=== PATIENT | female | born 1940 | race Caucasian/White ===

== ENCOUNTER 2017-06-25 23:47 | Emergency (ER) | payer OTHER, MEDICARE ==
[~2017-06-25] VITALS: Ht 162.6 cm; Wt 45.4 kg
--- NOTE | 2017-06-25 23:49 | ED AMS/SEIZURE/WEAK/DIZZY ---
History of Present Illness General Chief Complaint: Altered Mental Status Stated Complaint: INCREASED AMS Source: patient, family Exam Limitations: no limitations Vital Signs & Intake/Output Vital Signs & Intake/Output Vital Signs Date Time Temp Pulse Resp B/P B/P Pulse O2 O2 Flow FiO2 Mean Ox Delivery Rate 06/26 0430 100.9 88 16 149/66 93 Non 100% ReBreather 06/26 0333 90 169/74 06/26 0314 100.6 72 18 85/50 94 Nasal 2.0L Cannula 06/26 0140 98 Nasal 3.0L Cannula 06/26 0051 99.6 82 18 130/60 98 Nasal 4.0L Cannula 06/25 2353 99.4 90 28 151/71 100 Non 100% ReBreather ED Intake and Output 06/26 0000 06/25 1200 Intake Total Output Total Balance Patient 1000 lb Weight Weight Reported by Patient Measurement Method Allergies Coded Allergies: prochlorperazine ( 06/26/17) Reconcile Medications Acyclovir 400 MG TABLET 1 TAB PO TID ANTIVIRAL (Reported) Aspirin (Aspirin*) 81 MG TAB.CHEW 1 TAB PO DAILY HEART HEALTH (Reported) Calcium Carbonate/Vitamin D3 (Os-Duc 500+D3 Caplet) 500 MG-200 TABLET 1 TAB PO BID SUPPLEMENT (Reported) Cyanocobalamin (Vitamin B-12) (Vitamin B-12) 1,000 MCG/ML DROPS SUPPLEMENT ( Reported) Dexamethasone 4 MG TABLET 16 MG PO WEEKLY (Reported) Docusate Sodium (Col-Rite) 100 MG CAPSULE 1 TAB PO DAILY CONSTIPATION ( Reported) Lenalidomide (Revlimid) 10 MG CAPSULE (Reported) 1 TAB DAILY X 21 DAYS, THEN 7 DAYS OFF Lidocaine (Lidoderm) 5 % ADH..PATCH 1 PAT TOP DAILY PAIN (Reported) may wear up to 12 hours Ondansetron HCl (Zofran) 8 MG TABLET 1 TAB PO TID CHEMO (Reported) Oxycodone HCl (Oxycontin) 80 MG TAB.ER.12H 1 TAB PO TID PAIN (Reported) Oxycodone HCl (Roxicodone) 15 MG TABLET 1 TAB PO Q3H PRN PAIN (Reported) Polyethylene Glycol 3350 (Glycolax) 17 GRAM/DOSE POWDER 17 GM PO AD CONSTIPATION (Reported) Zoledronic Acid 4 MG VIAL (Reported) Triage Nurses Notes Reviewed? yes Onset: Gradual Duration: day(s): Timing: recent history Injury Environment: home Severity: moderate, severe Modifying Factors: Improves With: rest. Associated Symptoms: lethargy HPI: 76yo woman h/o multiple myeloma, presently active, being treated with oral meds, followed at [place], presents with mental status change. Per the medics, she fell 4 days ago. "I was sitting on the toilet and fell backwards." She does not believe that she lost consciousness. She notes worsening lower and thoracic back pain. Her increased her oxy from 15 to 25 with 3-4 extra doses, in addition to her oxycontin 80 tid. She became increasingly lethargic today. 911 was called. The medics arrived. She had slow respirations with periods of apnea, 02 sat in the 70's. She was revivied with vigorous stimulation. No narcan was employed. Upon arrival, she is presently comfortable, lethargic, responding appropriately to questions. Past History Travel History Traveled to [place] past 21 day No Medical History Any Pertinent Medical History? see below for history Musculoskeletal: chronic pain Blood Disorders: multiple myeloma Surgical History Surgical History: unobtainable Family History Hx Contributory? No Review of Systems Review of Systems Constitutional: Reports: no symptoms. EENTM: Reports: no symptoms. Respiratory: Reports: no symptoms. Cardiovascular: Reports: no symptoms. GI: Reports: no symptoms. Genitourinary: Reports: no symptoms. Musculoskeletal: Reports: no symptoms. Skin: Reports: no symptoms. Neurological/Psychological: Reports: no symptoms. Hematologic/Endocrine: Reports: no symptoms. Immunologic/Allergic: Reports: no symptoms. All Other Systems: Reviewed and Negative Physical Exam Physical Exam General Appearance: well developed/nourished, no apparent distress, awake, lethargic, but easily arousable with verbal stimuli Head: atraumatic, normal appearance Eyes: Bilateral: normal appearance, PERRL, EOMI. Ears, Nose, Throat: normal pharynx, normal ENT inspection Neck: normal inspection, supple, tender midline Respiratory: normal breath sounds, chest non-tender, no respiratory distress, quiet respiration, lungs clear Cardiovascular: regular rate/rhythm Gastrointestinal: normal bowel sounds, soft, non-tender, no organomegaly Back: kyphotic, diffuse spinal tenderness to palpation with paraspinal muscle spasm. Extremities: normal range of motion Neurologic/Psych: no motor/sensory deficits, awake, alert, oriented x 3 Skin: intact, normal color, warm/dry Core Measures ACS in differential dx? No CVA/TIA Diagnosis No Sepsis Present: No Sepsis Focused Exam Completed? No Progress Differential Diagnosis: medication side effect vs overdose vs other. Plan of Care: Orders Procedure Date/time Status BLOOD CULTURE 06/26 0320 Active BLOOD CULTURE 06/26 0316 Active TROPONIN LEVEL 06/25 2356 Complete PARTIAL THROMBOPLASTIN TIME 06/25 2356 Complete PROTHROMBIN TIME 06/25 2356 Complete LIPASE 06/25 2356 Complete ETHANOL 06/25 2356 Complete COMPREHENSIVE METABOLIC PANEL 06/25 2356 Complete CBC WITHOUT DIFFERENTIAL 06/25 2356 Complete AMYLASE 06/25 2356 Complete EKG 06/25 2356 Active Current Medications Sig/Nara Start time Last Medication Dose Stop Time Status Admin Ceftazidime 1,000 MG ONCE ONE 06/26 0800 AC 06/26 (Fortaz) 06/26 0801 0426 Laboratory Tests 06/26/17 0014: Anion Gap 13, Estimated GFR 31 L, BUN/Creatinine Ratio 22.5, Glucose 102 H, Calcium 7.5 L, Total Bilirubin 0.9, AST 14, ALT 31, Alkaline Phosphatase 109, Troponin I 0.05, Total Protein 6.0 L, Albumin 3.5, Globulin 2.5, Albumin/ Globulin Ratio 1.4, Amylase < 30 L, Lipase 16 L, PT 13.4 H, INR 1.28 H, APTT 27, CBC w Diff MAN DIFF ORDERED, RBC 3.23 L, MCV 96.8, MCH 32.4 H, RDW 18.3 H , MPV 8.2, Segmented Neutrophils 41 L, Band Neutrophils 3, Lymphocytes 30, Monocytes 26 H, Platelet Estimate ADEQUATE, Polychromasia 1+, Poikilocytosis 2+ , Anisocytosis 1+, [place] Cells 2+, Elliptocytes 2+, PUBS MCHC 33.5, Serum Alcohol < 10.0 06/25/172356: Methadone Screen Cancelled, Barbiturate Screen Cancelled, Ur Phencyclidine Scrn Cancelled, Amphetamines Screen Cancelled, U Benzodiazepines Scrn Cancelled, Urine Cocaine Screen Cancelled, Urine Cannabis Screen Cancelled, Urine Color Cancelled, Urine Clarity Cancelled, Urine pH Cancelled, Ur Specific Rosser Cancelled, Urine Protein Cancelled, Urine Ketones Cancelled, Urine Nitrite Cancelled, Urine Bilirubin Cancelled, Urine Urobilinogen Cancelled, Ur Leukocyte Esterase Cancelled, Ur Microscopic Cancelled, Urine Hemoglobin Cancelled, Urine Glucose Cancelled Microbiology 06/26 358 BLOOD: Blood Culture - RECD 06/26 354 BLOOD: Blood Culture - RECD Diagnostic Imaging: Viewed by Me: CT Scan. Discussed w/RAD: CT Scan. Radiology Impression: head/cervical ct... no acute fx... sequellae of multiple myeloma noted PATIENT: COLIN ISAAC PRESENT AGE: 76 PATIENT ACCOUNT NO: [id number] : 39 LOCATION: [facility] ORDERING PHYSICIAN: Zach Montez MD SERVICE DATE: 06/25/17 EXAM TYPE: CAT - CT CERV SPINE WO IV CONTRAST; CT HEAD WO IV CONTRAST EXAMINATION: CT HEAD WITHOUT CONTRAST CT CERVICAL SPINE WITHOUT CONTRAST CLINICAL INFORMATION: Fall, pain, history of multiple myeloma. COMPARISON: None. TECHNIQUE: Contiguous axial imaging was performed from the skull base to vertex without intravenous administration of contrast. Multidetector helical imaging was performed through the cervical spine. Coronal and sagittal reformats were completed at the technologist workstation. DLP: 1075 mGy-cm. FINDINGS: HEAD: There is no evidence of acute intracranial hemorrhage or territorial infarction. No abnormal mass effect or midline shift is seen. Cortical sage to white matter differentiation is well preserved without evidence of territorial infarct. No extra-axial fluid collections are identified. No hydrocephalus. Innumerable punched-out lytic lesions are noted in the calvarium in keeping with patient's known history of multiple myeloma. The mastoid air cells and visualized portions of the paranasal sinuses are well aerated. CERVICAL SPINE: No acute fracture or dislocation is identified in the cervical spine. Diffusely mottled appearance of the bones is again noted in keeping with patient's known history of multiple myeloma. There is moderate multilevel cervical spondylosis characterized by intervertebral disc space height loss and degenerative endplate changes throughout the cervical spine. Vertebral body heights are maintained. The atlantoaxial articulation is normally maintained. No prevertebral soft tissue swelling. IMPRESSION: 1. No acute intracranial pathology. 2. No evidence of acute cervical spine traumatic injury. 3. Redemonstrated sequela of multiple myeloma in the osseous structures of the head and cervical spine. DICTATED BY: Deven Templeton MD DATE/TIME DICTATED:06/26/17154 SKATESMAN:MC DATE/TIME TRANSCRIBED:154 CONFIDENTIAL, DO NOT COPY WITHOUT APPROPRIATE AUTHORIZATION. < Electronically signed in Other Vendor System> SIGNED BY: Deven Templeton MD 06/26/17 0204, chest/abd/pelvis ct... multiple sequellae of multiple myeloma, old compression fx. PATIENT: COLIN ISAAC PRESENT AGE: 76 PATIENT ACCOUNT NO: [id number] : 39 LOCATION: [facility] ORDERING PHYSICIAN: Zach Montez MD SERVICE DATE: 06/25/17 EXAM TYPE: CAT - CT ABD & PELVIS W/O IV CONTRAS; CT CHEST WO IV CONTRAST EXAMINATION: CT CHEST, ABDOMEN AND PELVIS WITH CONTRAST CLINICAL INFORMATION: Pain, fall, history of multiple myeloma. COMPARISON: No pertinent prior studies are available for comparison. TECHNIQUE: Multidetector volumetric imaging was performed from the thoracic inlet through the pubic symphysis without intravenous contrast. Total exam dose-length product 308 mGy-cm FINDINGS: Evaluation is limited by streak artifact due to the patient's arms being positioned by her side. CHEST: LUNGS: There are small bilateral pleural effusions. There are bibasilar consolidations with additional focal areas of consolidation in the right upper lobe and dependent left upper lobe. MEDIASTINUM : There is moderate cardiomegaly. There is enlargement of the main pulmonary artery which measures 4.8 cm in diameter with abnormal enlargement of the right and left pulmonary arteries as well suggesting chronic pulmonary hypertension. There is a 1.1 cm hypoattenuating nodule in the left thyroid lobe. VASCULAR: Ascending thoracic aortic aneurysm is noted measuring 4.0 cm in AP diameter. Scattered atherosclerotic vascular calcifications are noted throughout the thoracic aorta. ABDOMEN/PELVIS: LIVER, GALLBLADDER, AND BILIARY TREE: The liver is normal in size, shape, and attenuation. No focal hepatic lesion or biliary ductal dilatation is present. The gallbladder is unremarkable with no evidence of radiopaque gallstones, gallbladder wall thickening, or obvious pericholecystic inflammatory changes. PANCREAS: Mildly atrophic. No obvious mass on this limited unenhanced CT. SPLEEN: Normal size. No focal lesion. ADRENAL GLANDS: Normal; no mass. KIDNEYS AND URETERS: Diffusely enlarged and polycystic kidneys are noted. No hydroureter. No nephrolithiasis. GASTROINTESTINAL TRACT: Stomach and small bowel non-dilated. No colonic wall thickening or pericolonic inflammatory changes. The appendix is not definitively identified but there is no focal right lower quadrant inflammatory stranding to suggest acute appendicitis. ABDOMINAL WALL: No significant hernia is appreciated. LYMPHOVASCULAR STRUCTURES: No lymphadenopathy. There are scattered atherosclerotic vascular calcifications without abdominal aortic aneurysm. BLADDER: No focal mass or wall thickening seen. No bladder calculi. PELVIC VISCERA: A pessary device is noted. Otherwise grossly unremarkable appearance of the uterus. No adnexal masses. OSSEOUS STRUCTURES: There is extensive diffuse mottled appearance of the bones compatible with the stated history of multiple myeloma. Chronic sternal deformity is noted. Chronic deformity of the proximal right humerus is noted. There are age indeterminate compression deformities involving T4-T9 with associated exaggerated upper thoracic kyphosis. There are additional age indeterminate compression deformities of T12 and L1. A frankly lytic lesion with cortical destruction is noted in the right lower sacrum. Multiple additional lesions in the pelvis demonstrate less extensive associated cortical destruction. Posttraumatic deformity of the left inferior pubic ramus is noted. There are chronic deformities of multiple ribs bilaterally. Extensive left glenohumeral joint osteoarthritis is noted. IMPRESSION: 1. Limited evaluation secondary to lack of intravenous contrast and the patient's arms being positioned by her side producing streak artifact. 2. Multifocal pulmonary consolidation, most severely involving the bilateral lung bases, along with small bilateral pleural effusions. Findings could represent sequela of pneumonia and/or aspiration. 3. Extensive diffuse mottled appearance of the bones with innumerable lytic lesions compatible with stated history of multiple myeloma. A frankly lytic lesion is noted in the inferior right sacrum with associated cortical destruction. Additional lytic lesions with less extensive cortical destruction are noted throughout the pelvis. 4. Multiple age indeterminate compression deformities involving T4-T9 where there is exaggerated upper thoracic kyphosis, as well as T12 and L1. No definite cortical discontinuity or paravertebral soft tissue prominence is seen at any level though clinical correlation for point tenderness is recommended. 5. Moderate cardiomegaly and sequela of chronic pulmonary hypertension. 6. Extensive chronic posttraumatic deformities involving the right humerus, multiple bilateral ribs, and left inferior pubic ramus. 7. Diffusely enlarged and polycystic kidneys without hydroureter or nephrolithiasis. 8. Ascending thoracic aortic aneurysm measuring 4 cm in AP diameter. DICTATED BY: Deven Templeton MD DATE/TIME DICTATED:136 SKATESMAN:MC DATE/TIME TRANSCRIBED:06/26/17136 CONFIDENTIAL, DO NOT COPY WITHOUT APPROPRIATE AUTHORIZATION. <Electronically signed in Other Vendor System> SIGNED BY: Deven Templeton MD 06/26/17 0159 Initial ED EKG: nonspecific ST T wave chg Departure Departure Disposition: HOME OR SELF CARE Condition: Stable Clinical Impression Primary Impression: Pneumonia Secondary Impressions: Acute renal failure (ARF), Medication side effect, Multiple myeloma, Neutropenia, Sepsis Departure Forms: Customer Survey General Discharge Information Comments 06/26/16, 3:57AM... discussed with dr. low, [facility] oncology, pt accepted for transfer to coordinate her multiple myeloma, dehydration, pneumonia , and pain management. pt given vancomycin and ceftaz for sepsis in context of neutropenia. Critical Care Note Critical Care Note Critical Care Time: 30-74 min
[2017-06-26 00:24] LABS: HEMATOCRIT 31.3 % (37-47); MEAN CORPUSCULAR HGB 32.4 PG (27.0-31.0); MEAN CORPUSCULAR HGB CONC 33.5 G/DL (33.0-37.0); MEAN CORPUSCULAR VOLUME 96.8 FL (81.0-99.0); MEAN PLATELET VOLUME 8.2 FL (7.4-10.4); PLATELET COUNT 119 /CUMM (130-400); RBC DISTRIBUTION WIDTH 18.3 % (11.5-14.5); RED BLOOD CELL CT 3.23 /CUMM (4.20-5.40)
[2017-06-26 00:39] LABS: PT 13.4 SEC (9.4-12.5); PTT 27 SEC (25-37)
[2017-06-26 00:51] LABS: WHITE BLOOD CELL COUNT 1.4 /CUMM (4.8-10.8)
[2017-06-26] MEDS ORDERED: ASPIRIN81 M4 PO (01:24)
[2017-06-26] MEDS ORDERED: ACYCLOVIR400 M1 PO (01:24)
[2017-06-26] MEDS ORDERED: OS-CAL 500+D31 EAC1 PO (01:25)
[2017-06-26] MEDS ORDERED: DEXAMETHASONE4 M1 PO (01:26)
[2017-06-26] MEDS ORDERED: COL-RITE100 M1 PO (01:31)
[2017-06-26] MEDS ORDERED: ZOFRAN8 M1 PO (01:33)
[2017-06-26] MEDS ORDERED: LIDODERM1 EACH TOP (01:33)
[2017-06-26] MEDS ORDERED: REVLIMID10 M1 PO (01:33)
[2017-06-26] MEDS ORDERED: OXYCONTIN80 M1 PO (01:34)
[2017-06-26] MEDS ORDERED: ROXICODONE15 M1 PO (01:35)
[2017-06-26] MEDS ORDERED: GLYCOLAX119 GM PO (01:35)
[2017-06-26] MEDS ORDERED: VITAMIN B-1000 MCG/1 (01:36)
[2017-06-26] MEDS ORDERED: ZOLEDRONIC ACID4 MG (01:37)
--- NOTE | 2017-06-26 01:59 | CT SCAN REPORT ---
EXAMINATION: CT CHEST, ABDOMEN AND PELVIS WITH CONTRAST CLINICAL INFORMATION: Pain, fall, history of multiple myeloma. COMPARISON: No pertinent prior studies are available for comparison. TECHNIQUE: Multidetector volumetric imaging was performed from the thoracic inlet through the pubic symphysis without intravenous contrast. Total exam dose-length product 308 mGy-cm FINDINGS: Evaluation is limited by streak artifact due to the patient's arms being positioned by her side. CHEST: LUNGS: There are small bilateral pleural effusions. There are bibasilar consolidations with additional focal areas of consolidation in the right upper lobe and dependent left upper lobe. MEDIASTINUM: There is moderate cardiomegaly. There is enlargement of the main pulmonary artery which measures 4.8 cm in diameter with abnormal enlargement of the right and left pulmonary arteries as well suggesting chronic pulmonary hypertension. There is a 1.1 cm hypoattenuating nodule in the left thyroid lobe. VASCULAR: Ascending thoracic aortic aneurysm is noted measuring 4.0 cm in AP diameter. Scattered atherosclerotic vascular calcifications are noted throughout the thoracic aorta. ABDOMEN/PELVIS: LIVER, GALLBLADDER, AND BILIARY TREE: The liver is normal in size, shape, and attenuation. No focal hepatic lesion or biliary ductal dilatation is present. The gallbladder is unremarkable with no evidence of radiopaque gallstones, gallbladder wall thickening, or obvious pericholecystic inflammatory changes. PANCREAS: Mildly atrophic. No obvious mass on this limited unenhanced CT. SPLEEN: Normal size. No focal lesion. ADRENAL GLANDS: Normal; no mass. KIDNEYS AND URETERS: Diffusely enlarged and polycystic kidneys are noted. No hydroureter. No nephrolithiasis. GASTROINTESTINAL TRACT: Stomach and small bowel non-dilated. No colonic wall thickening or pericolonic inflammatory changes. The appendix is not definitively identified but there is no focal right lower quadrant inflammatory stranding to suggest acute appendicitis. ABDOMINAL WALL: No significant hernia is appreciated. LYMPHOVASCULAR STRUCTURES: No lymphadenopathy. There are scattered atherosclerotic vascular calcifications without abdominal aortic aneurysm. BLADDER: No focal mass or wall thickening seen. No bladder calculi. PELVIC VISCERA: A pessary device is noted. Otherwise grossly unremarkable appearance of the uterus. No adnexal masses. OSSEOUS STRUCTURES: There is extensive diffuse mottled appearance of the bones compatible with the stated history of multiple myeloma. Chronic sternal deformity is noted. Chronic deformity of the proximal right humerus is noted. There are age indeterminate compression deformities involving T4-T9 with associated exaggerated upper thoracic kyphosis. There are additional age indeterminate compression deformities of T12 and L1. A frankly lytic lesion with cortical destruction is noted in the right lower sacrum. Multiple additional lesions in the pelvis demonstrate less extensive associated cortical destruction. Posttraumatic deformity of the left inferior pubic ramus is noted. There are chronic deformities of multiple ribs bilaterally. Extensive left glenohumeral joint osteoarthritis is noted. IMPRESSION: 1. Limited evaluation secondary to lack of intravenous contrast and the patient's arms being positioned by her side producing streak artifact. 2. Multifocal pulmonary consolidation, most severely involving the bilateral lung bases, along with small bilateral pleural effusions. Findings could represent sequela of pneumonia and/or aspiration. 3. Extensive diffuse mottled appearance of the bones with innumerable lytic lesions compatible with stated history of multiple myeloma. A frankly lytic lesion is noted in the inferior right sacrum with associated cortical destruction. Additional lytic lesions with less extensive cortical destruction are noted throughout the pelvis. 4. Multiple age indeterminate compression deformities involving T4-T9 where there is exaggerated upper thoracic kyphosis, as well as T12 and L1. No definite cortical discontinuity or paravertebral soft tissue prominence is seen at any level though clinical correlation for point tenderness is recommended. 5. Moderate cardiomegaly and sequela of chronic pulmonary hypertension. 6. Extensive chronic posttraumatic deformities involving the right humerus, multiple bilateral ribs, and left inferior pubic ramus. 7. Diffusely enlarged and polycystic kidneys without hydroureter or nephrolithiasis. 8. Ascending thoracic aortic aneurysm measuring 4 cm in AP diameter.
--- NOTE | 2017-06-26 02:04 | CT SCAN REPORT ---
EXAMINATION: CT HEAD WITHOUT CONTRAST CT CERVICAL SPINE WITHOUT CONTRAST CLINICAL INFORMATION: Fall, pain, history of multiple myeloma. COMPARISON: None. TECHNIQUE: Contiguous axial imaging was performed from the skull base to vertex without intravenous administration of contrast. Multidetector helical imaging was performed through the cervical spine. Coronal and sagittal reformats were completed at the technologist workstation. DLP: 1075 mGy-cm. FINDINGS: HEAD: There is no evidence of acute intracranial hemorrhage or territorial infarction. No abnormal mass effect or midline shift is seen. Cortical sage to white matter differentiation is well preserved without evidence of territorial infarct. No extra-axial fluid collections are identified. No hydrocephalus. Innumerable punched-out lytic lesions are noted in the calvarium in keeping with patient's known history of multiple myeloma. The mastoid air cells and visualized portions of the paranasal sinuses are well aerated. CERVICAL SPINE: No acute fracture or dislocation is identified in the cervical spine. Diffusely mottled appearance of the bones is again noted in keeping with patient's known history of multiple myeloma. There is moderate multilevel cervical spondylosis characterized by intervertebral disc space height loss and degenerative endplate changes throughout the cervical spine. Vertebral body heights are maintained. The atlantoaxial articulation is normally maintained. No prevertebral soft tissue swelling. IMPRESSION: 1. No acute intracranial pathology. 2. No evidence of acute cervical spine traumatic injury. 3. Redemonstrated sequela of multiple myeloma in the osseous structures of the head and cervical spine.
[2017-06-26 04:30] VITALS: BP 149/66
== END 2017-06-26 05:18 | disposition short-term general hospital (02) ==
LOC: ERH 23:47
PROVIDERS: Pediatrics
DX: J18.9 Pneumonia, unspecified organism (principal); A41.9 Sepsis, unspecified organism; N17.9 Acute kidney failure, unspecified; C90.00 Multiple myeloma not having achieved remission; D70.9 Neutropenia, unspecified
CPT/HCPCS: 74176; 80307; 87040; 93005; 93010; 96374; 99291; G0480; J0713; J2310; J3370